=== PATIENT | female | born 1930 | race Caucasian/White ===

== ENCOUNTER 2016-12-17 22:46 | Emergency (ER) | payer MEDICARE | END 2016-12-17 23:59 | disposition home or self-care (01) | LOC: ER 22:46 | DX: M79.604 Pain in right leg (principal); M79.605 Pain in left leg; G14 Postpolio syndrome; Z79.899 Other long term (current) drug therapy; Z79.84 Long term (current) use of oral hypoglycemic drugs | CPT/HCPCS: 96372; 99282-25; 99283; J1170 ==